=== PATIENT | male | born 1950 | race Caucasian/White ===

== ENCOUNTER → 2022-07-21 07:07 | Outpatient (CLI) | payer MEDICARE, SELFPAY ==
[2022-07-21 08:50] LABS: Hematocrit 47.6 % (41-53); Hemoglobin 16.1 g/dL (13.5-17.5); Mean Corpuscular HGB Conc 33.8 % (30-36); Mean Corpuscular Hemoglobin 28.9 PG (26-34); Mean Corpuscular Volume 85.6 fL (80-100); Platelet Count 145 X10^3/uL (150-400); Red Blood Cell Count 5.57 X10^6/uL (4.5-5.9); Red Cell Distribution Width 14.8 % (11.6-14.8); White Blood Cell Count 4.5 X10^3/uL (4.5-11.0)
[2022-07-21 09:27] LABS: Alanine Aminotransferase 40 IU/L (<50); Albumin 3.9 g/dL (3.5-5.0); Albumin Globulin Ratio 1.3 (1.0-2.8); Alkaline Phosphatase 65 U/L (38-126); Aspartate Aminotransferase 31 IU/L (17-59); BUN Creatinine Ratio 15.9 (6-22); Bilirubin Total 0.5 mg/dL (0.2-1.3); Blood Urea Nitrogen 14 mg/dL (9-20); Calcium 8.8 mg/dL (8.4-10.2); Carbon Dioxide 27 mmol/L (22-32); Chloride 102 mmol/L (98-107); Cholesterol 178 mg/dL (140-199); Estimated Glomerular Filt Rate > 60 mL/min (>60); Glucose 106 mg/dL (80-110); HDL Cholesterol 54 mg/dL (40-60); HEMOLYSIS < 15 (0-50); LDL Cholesterol Calculated 113 mg/dL (<100); Potassium 4.4 mmol/L (3.4-5.1); Sodium 140 mmol/L (137-145); Total Protein 6.9 g/dL (6.3-8.2); Triglycerides 57 mg/dL (35-150)
[2022-07-21 09:53] LABS: Prostate Specific Antigen 1.14 ng/mL (0.10-4.00)
[2022-07-21 11:44] LABS: TSH w/ Reflex to FT4 1.97 uIU/mL (0.47-4.68)
== END ==
PROVIDERS: PCP Internal Medicine; Referring Provider Internal Medicine; Visit Provider Internal Medicine
DX: I10 Essential (primary) hypertension (principal); N40.0 Benign prostatic hyperplasia without lower urinary tract symptoms; E78.2 Mixed hyperlipidemia
CPT/HCPCS: 36415; 80053; 80061; 84153; 84443; 85027

== ENCOUNTER 2024-08-07 06:55 | Emergency (ER) | payer MEDICARE, SELFPAY ==
[2024-08-07 07:04] VITALS: BP 175/93; PULSE 83; RESP 18; TEMP 36.3; O2SAT 98; BMI 38.7
--- NOTE | 2024-08-07 07:20 | ED.URI ---
HPI - URI/Sore Throat General Chief Complaint: Upper Respiratory Symptoms Stated Complaint: Sinus Infection Time Seen by Provider: 08/07/24 07:11 Source: patient Mode of arrival: Ambulatory History of Present Illness HPI Narrative: patient is a 73-year-old male history of hypertension hyperlipidemia presenting today with ongoing sinus issues. He reports he has had symptoms since April. He is bagging given 2 rounds of steroids and amoxicillin he has different nasal sprays. He says the nasal sprays to help but he has not really gotten much relief. Now over last couple of days his eyes are very painful. His right eye is more sensitive than his left. He reports that he has not really able to clear his right Christensen. He has continuous tearing from his right eye feels like something is in there. No fever chills headache neck pain. No numbness tingling nausea or vomiting. Related Data Previous Rx's Medication Instructions Recorded rosuvastatin 10 mg tablet 10 mg PO DAILY #90 tabs 09/01/23 amlodipine 5 mg tablet 5 mg PO DAILY #90 tabs 09/29/23 valsartan 160 mg tablet 160 mg PO DAILY #90 tabs 09/29/23 doxycycline monohydrate 100 mg 100 mg PO DAILY #90 caps 11/09/23 capsule hydrochlorothiazide 12.5 mg tablet 12.5 mg PO QAM #90 tabs 03/01/24 ResMed AirMini CPAP machine #1 ea 05/24/24 CPAP machine #1 ea 08/01/24 erythromycin 5 mg/gram (0.5 %) eye 0.5 inch EYE-BOTH .At night #3.5 08/07/24 ointment grams levofloxacin 750 mg tablet 750 mg PO DAILY 7 days #7 tabs 08/07/24 polymyxin B sulfate 10,000 1 drp EYE-BOTH Q4HRWA 7 days #10 mL 08/07/24 unit-trimethoprim 1 mg/mL eye drops Allergies Allergy/AdvReac Type Severity Reaction Status Date / Time losartan AdvReac Severe Cough Verified 09/29/23 12:47 lisinopril AdvReac Intermediate Cough Verified 09/29/23 12:47 Patient History Medical History (Updated 08/07/24 @ 09:20 by Gely Mckay DO) AAA (abdominal aortic aneurysm) without rupture Essential hypertension Overweight Allergic rhinitis Primary osteoarthritis involving multiple joints Chronic low back pain Obstructive sleep apnea Mixed hyperlipidemia Vision disorder Hearing loss Acne (~2009) Fractures Ankle pain (~1999) Measles Chicken pox AAA (abdominal aortic aneurysm) (~2013) Family History Father Hypertension Hyperlipidemia Mother History of heart disease Hypertension Stroke Sister Diabetes mellitus Hypertension Grandfather History of heart disease Hypertension Stroke Grandmother Mental health problem Grandfather History of heart disease Grandmother Mental health problem Family/Other Diabetes mellitus Social History details: , 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; retired police Smoking Status: Never smoker Smoking Status: Never smoker alcohol intake frequency: 0-2 drinks per day Substance Use Type: does not use Exam Initial Vital Signs Initial Vital Signs: Vital Signs Temperature 97.3 F L 08/07/24 07:04 Pulse Rate 83 08/07/24 07:04 Respiratory Rate 18 08/07/24 07:04 Blood Pressure 175/93 H 08/07/24 07:04 Pulse Oximetry 98 08/07/24 07:04 Oxygen Delivery Method Room Air 08/07/24 07:04 GENERAL: alert 73-year-old male HEENT: Head atraumatic,EOMI, pupils reactive, Tenderness over right sinus Right eye was treated with proparacaine, stained with fluorescein. Fluorescein uptake at 12:00 p.m. in a linear pattern eyes injected pressure 19 mmHg Left eye was treated with proparacaine, stained with fluorescein. Dye uptake circular 12:00 p.m. pattern and pressure 17 mmHg NECK: supple no meningeal signs CARDIOVASCULAR: Regular rate and rhythm without murmurs, rubs or gallops. RESPIRATORY: Breath sounds equal bilaterally, no wheezes rales or rhonchi. ABDOMEN: Soft, nontender. Normoactive bowel sounds all 4 quadrants. No guarding or rebound. EXTREMITIES: Normal range of motion, no clubbing or edema. Neurovascularly intact NEUROLOGICAL: Alert and oriented x4.Normal gait and speech. SKIN: Warm, dry, no laceration, no petechiae, no rashes or lesions. Course Orders Ordered: Discontinued Medications Fluorescein Sodium (Fluorescein 1 Mg Strip) 1 mg EYE-BOTH NOW ONE Stop: 08/07/24 08:17 Last Admin: 08/07/24 08:42 Dose: 1 mg Documented By: ABHISHEK Proparacaine HCl (Proparacaine 0.5% Ophth June) 1 drops EYE-BOTH NOW ONE Stop: 08/07/24 08:17 Last Admin: 08/07/24 08:42 Dose: 1 drop Documented By: ABHISHEK Vital Signs Vital signs: Vital Signs - 8 hr 08/07/24 07:04 Temperature 97.3 F L Pulse Rate 83 Respiratory Rate 18 Blood Pressure 175/93 H Pulse Oximetry 98 Oxygen Delivery Method Room Air MDM - URI/Sore Throat Lab Data Labs: Lab Results 08/07/24 Range/Units 08:44 SARS-CoV-2 (PCR) Negative (Negative) Influenza A (RT-PCR) Flu a negative (NEGATIVE) Influenza B (RT-PCR) Flu b negative (NEGATIVE) RSV (PCR) Negative (Negative) Imaging Data CT scan - head: Radiologist's Impression: PROCEDURE: CT SINUS SCREEN WO CON INDICATIONS: sinus symptoms for 4 months TECHNIQUE: Noncontrast 3.0 mm axial images acquired from the frontal sinuses to the mid-sella, with coronal and sagittal reformats. For radiation dose reduction, the following was used: automated exposure control, adjustment of mA and/or kV according to patient size. COMPARISON: None. FINDINGS: Image quality: Excellent. Maxillary Sinuses: No bony remodeling or destruction. Bilateral mild mucosal thickening, right greater than left. No air-fluid levels. Ethmoid Air Cells: No bony remodeling or destruction. Mild patchy mucosal thickening. No air-fluid levels. Sphenoid Sinuses: No bony remodeling or destruction. Prominent mucosal thickening of the left sphenoid sinus. Frontal Sinuses: No bony remodeling or destruction. Minimal mucosal thickening inferiorly on the left. Ostiomeatal Complexes: Both ostiomeatal complexes are somewhat narrowed by mucosal thickening. The right ostiomeatal complex is obstructed by minimal soft tissue. No Mukund cells. Miscellaneous: Visualized intra-orbital contents are normal. No axel bullosa or paradoxical turbinate curvature. No nasal septal deviation. IMPRESSION: Diffuse changes of chronic sinus disease. No air-fluid levels. Dictated by: Juan Oliver M.D. on 08/07/2024 at 8:44 [facility] Narrative Medical decision making narrative: Patient is 73-year-old male presenting today with ongoing sinus pressure and pain now both eyes are painful and watery and quite sensitive to light. On exam he is found to have actual bilateral corneal abrasions the right appears worse than the left. He has had persistent sinus symptoms for a couple of months despite antibiotics and steroids. He has not tried allergy medication. CT scan is negative for any kind of masses. Will try fluoroquinolone for about 7 days unclear if he was actually on amoxicillin or Augmentin but I think reasonable to try a different antibiotic. We will also give him some antibiotic drops and ointment for his corneal abrasions. Pressure is within normal limits. He has not where contacts. Respiratory panel negative patient is made aware Discharge Plan Departure Patient Disposition: Home Clinical Impression: Chronic infection of sinus, Bilateral corneal abrasions Instructions: DI for Corneal Abrasion, Sinusitis Activity Restrictions/Additional Instructions: *You have been diagnosed with chronic sinus infection bilateral corneal abrasion *What to do: At this time you have areas in both eyes which are likely causing your irritation. Antibiotic drops and ointment should help in about 7 days Your respiratory panel is still pending. It does not change treatment at this time. If it is positive I will call you by the end of the day if it is negative I will not call you you can also look in your portal *Continue to take medications as directed Levaquin 750 mg once a day for 7 days (for sinusitis) Erythromycin ointment in both eyes at night or as needed for soothing Polytrim drops 2 drops every 4 hours while awake for 7 days Try Lisa Claritin or [id number] allergy medicine as well *Follow up with your primary care provider in 2-3 days or call [phone] *Return to ER if you should have increasing eye pain headache fever neck pain or any new, worsening or concerning symptoms Prescriptions: New levofloxacin 750 mg tablet 750 mg PO DAILY 7 Days Qty: 7 0RF erythromycin 5 mg/gram (0.5 %) ointment 0.5 inch EYE-BOTH .At night Qty: 3.5 0RF polymyxin B sulf-trimethoprim 10,000 unit- 1 mg/mL drops 1 drp EYE-BOTH Q4HRWA 7 Days Qty: 10 0RF No Action rosuvastatin 10 mg tablet 10 mg PO DAILY Qty: 90 3RF doxycycline monohydrate 100 mg capsule 100 mg PO DAILY Qty: 90 3RF hydrochlorothiazide 12.5 mg tablet 12.5 mg PO QAM Qty: 90 3RF (DME) ResMed AirMini CPAP machine See Rx Instructions .Route .MEDSUPPLY Qty: 1 0RF Rx Instructions: ResMed AirMini Travel CPAP Machine - as directed (DME) CPAP machine See Rx Instructions .Route .MEDSUPPLY Qty: 1 0RF Rx Instructions: APAP therapy, Min 4 cmH20, Max 10 cmH20 valsartan 160 mg tablet 160 mg PO DAILY Qty: 90 3RF amlodipine 5 mg tablet 5 mg PO DAILY Qty: 90 3RF Referrals: Austin Schwab MD [Primary Care Provider] - Stand Alone Forms: Patient Portal/API/Survey
--- NOTE | 2024-08-07 08:16 | DI.CT.S_ITS ---
PROCEDURE: CT SINUS SCREEN WO CON INDICATIONS: sinus symptoms for 4 months TECHNIQUE: Noncontrast 3.0 mm axial images acquired from the frontal sinuses to the mid-sella, with coronal and sagittal reformats. For radiation dose reduction, the following was used: automated exposure control, adjustment of mA and/or kV according to patient size. COMPARISON: None. FINDINGS: Image quality: Excellent. Maxillary Sinuses: No bony remodeling or destruction. Bilateral mild mucosal thickening, right greater than left. No air-fluid levels. Ethmoid Air Cells: No bony remodeling or destruction. Mild patchy mucosal thickening. No air-fluid levels. Sphenoid Sinuses: No bony remodeling or destruction. Prominent mucosal thickening of the left sphenoid sinus. Frontal Sinuses: No bony remodeling or destruction. Minimal mucosal thickening inferiorly on the left. Ostiomeatal Complexes: Both ostiomeatal complexes are somewhat narrowed by mucosal thickening. The right ostiomeatal complex is obstructed by minimal soft tissue. No Mukund cells. Miscellaneous: Visualized intra-orbital contents are normal. No axel bullosa or paradoxical turbinate curvature. No nasal septal deviation. IMPRESSION: Diffuse changes of chronic sinus disease. No air-fluid levels. Dictated by: Juan Oliver M.D. on 08/07/2024 at 8:44 Approved by: Juan Oliver M.D. on 08/07/2024 at 8:47
[2024-08-07] MEDS: FLUORESCEIN 1 MG STRIP EYE-BOTH (08:42)
[2024-08-07] MEDS: PROPARACAINE 0.5% OPHTH SOL 1 DROPS EYE-BOTH (08:42)
[2024-08-07 09:25] LABS: COVID-19 CEPHEID 4-PLEX PCR Negative (Negative); Influenza A - CEPHEID Flu A NEGATIVE (NEGATIVE); Influenza B - CEPHEID Flu B NEGATIVE (NEGATIVE); Respiratory Syncytial Virus Negative (Negative)
[2024-08-07 09:38] VITALS: BP 143/83; PULSE 61; RESP 18; O2SAT 98
== END 2024-08-07 09:39 | disposition home or self-care (01) ==
PROVIDERS: Emergency Provider Emergency Medicine; PCP Internal Medicine
DX: J32.9 Chronic sinusitis, unspecified (principal); S05.02XA Injury of conjunctiva and corneal abrasion without foreign body, left eye, initial encounter; S05.01XA Injury of conjunctiva and corneal abrasion without foreign body, right eye, initial encounter
CPT/HCPCS: 0241U; 70486; 99282; 99284

== ENCOUNTER 2025-02-26 09:35 | Emergency (ER) | payer MEDICARE, SELFPAY ==
[2025-02-26] VITALS (86 sets, daily range): BP systolic 69–156; BP diastolic 42–92; PULSE 107–142; RESP 19–46; TEMP 36.9–38.6; O2SAT 74–100; BMI 26.9
--- NOTE | 2025-02-26 09:46 | EKG_ITS ---
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
--- NOTE | 2025-02-26 09:46 | DI.RAD.S_ITS ---
PROCEDURE: XR CHEST 1V INDICATIONS: suspected sepsis TECHNIQUE: One view of the chest was acquired. COMPARISON: None. FINDINGS: Surgical changes and devices: None. Lungs and pleura: Minimal increased vascularity. Slight streaky retrocardiac opacity. Mediastinum: Mediastinal contours appear normal. Heart size is normal. Bones and chest wall: No suspicious bony lesions. Overlying soft tissues appear unremarkable. IMPRESSION: Streaky retrocardiac opacity possibly related to atelectasis versus developing pneumonia. Dictated by: Griselda Patrick M.D. on 02/26/2025 at 10:16 Approved by: Griselda Patrick M.D. on 02/26/2025 at 12:07
--- NOTE | 2025-02-26 09:53 | DI.CT.S_ITS ---
PROCEDURE: CT ANGIO CHEST PE PROTOCOL INDICATIONS: hypoxic tachycardic TECHNIQUE: After the administration of intravenous contrast, 2 mm thick sections acquired from the pulmonary apices to the posterior costophrenic angles. 3-dimensional maximum intensity projection (MIP) coronal and sagittal reformats were then acquired through the thorax. For radiation dose reduction, the following was used: automated exposure control, adjustment of mA and/or kV according to patient size. COMPARISON: [facility], CT, CT CHEST WITHOUT CONTRAST, 01/18/2025, 9:40. [facility], CT, CT ANGIO CHEST PE, 12/24/2024, 11:31. [facility], CT, CT BIOPSY LUNG/MEDIASTINUM, 12/28/2024, 11:14. FINDINGS: Image quality: Diagnostic. Pulmonary arteries: Pulmonary arteries are normal in size, and demonstrate no intraluminal filling defects to suggest central pulmonary embolism. Lower Neck: No enlarged lymph nodes. Thyroid: No thyroid nodules which require sonographic follow up, per consensus guidelines. Axillae: No enlarged lymph nodes. Chest Wall: Unremarkable. Bones: Unremarkable. Lungs and Pleura: No pneumothorax or pleural effusions. Consolidative opacities within the right infrahilar region as well as left lower lobe. Multiple additional nodular opacities throughout the bilateral lung vasquez. For example in the left upper lobe measuring 2.3 cm. Compared to prior CT chest, most these opacities appear similar, the left lower lobe lesion demonstrates more consolidation. Heart: Heart size is normal. No pericardial effusion. Thoracic Vessels: No aortic aneurysm. Mediastinum and Tamia: No enlarged lymph nodes. Esophagus: No wall thickening. No hiatal hernia. Upper Abdomen: Separately dictated. IMPRESSION: No pulmonary embolus. Multifocal pulmonary consolidative opacities, greatest within the right infrahilar region and left lower lobe. Scattered additional nodular opacities throughout the bilateral lung vasquez. Differential includes infection or malignancy, correlate with recent lung biopsy results. Recommend follow-up CT chest in 3 months to assess stability or improvement. Dictated by: Kevin Hernandez M.D. on 02/26/2025 at 12:52 Approved by: Kevin Hernandez M.D. on 02/26/2025 at 13:01
--- NOTE | 2025-02-26 09:54 | ED.WEAKNESS ---
HPI - Weakness General Chief complaint: Weakness Stated complaint: Weakness, lethargic, rolled off couch Time Seen by Provider: 02/26/25 09:36 History of Present Illness HPI Narrative: 74-year-old male history of AAA, hypertension, hyperlipidemia, RAMOS, chronic low back pain, obesity, granulomatosis with polyangiitis here via EMS for evaluation of weakness. Patient is a poor historian. He does say and review of systems that he has had a cough and then he has been ?sick since November. ? Denies any chest pain or difficulty breathing. Denies abdominal pain. Endorses fatigue and weakness. Arrived via EMS for complaints of weakness, altered mental status, hypoxia and shortness of breath for several days. EMS initially called out by for patient rolling off the couch onto the floor. Noted by EMS to be febrile tachycardic and hypotensive. Placed on nasal cannula Related Data Home Medications ?Medication ?Instructions ?Recorded ?Confirmed atovaquone 750 mg/5 mL oral 1,500 mg PO QAM 02/20/25 02/20/25 suspension azathioprine 50 mg tablet 100 mg PO DAILY 02/20/25 02/20/25 folic acid 1 mg tablet 1 mg PO DAILY 02/20/25 02/20/25 guaifenesin 600 mg tablet, 600 mg PO BID 02/20/25 02/20/25 extended release 12 hr (Mucus Relief ER) methotrexate sodium 2.5 mg tablet 15 mg PO 02/20/25 02/20/25 prednisone 20 mg tablet 50 mg PO 02/20/25 02/20/25 Previous Rx's ?Medication ?Instructions ?Recorded ResMed AirMini CPAP machine #1 ea 05/24/24 CPAP machine #1 ea 08/01/24 rosuvastatin 10 mg tablet 10 mg PO DAILY #90 tabs 10/06/24 valsartan 160 mg tablet 160 mg PO DAILY #90 tabs 10/06/24 Allergies Allergy/AdvReac Type Severity Reaction Status Date / Time losartan AdvReac Severe Cough Verified 02/20/25 08:22 lisinopril AdvReac Intermediate Cough Verified 02/20/25 08:22 sulfamethoxazole (From AdvReac Mild Rash Verified 02/20/25 08:23 Bactrim) trimethoprim (From Bactrim) AdvReac Mild Rash Verified 02/20/25 08:23 Review of Systems Review of Systems Narrative: Limited due to acuity of situation Patient History Medical History AAA (abdominal aortic aneurysm) without rupture Essential hypertension Overweight Allergic rhinitis Primary osteoarthritis involving multiple joints Chronic low back pain Obstructive sleep apnea Mixed hyperlipidemia Vision disorder Hearing loss Acne (~2009) Fractures Ankle pain (~1999) Measles Chicken pox AAA (abdominal aortic aneurysm) (~2013) Family History Father Hypertension Hyperlipidemia Mother History of heart disease Hypertension Stroke Sister Diabetes mellitus Hypertension Grandfather History of heart disease Hypertension Stroke Grandmother Mental health problem Grandfather History of heart disease Grandmother Mental health problem Family/Other Diabetes mellitus Social History details: , 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 Patient has some distal cyanosis Pulmonary: Coarse breath sounds bilaterally, increased work of breathing with tachypnea Abdominal: soft, non-tender Extremities: No LE edema. No clinical signs of DVT Skin: warm and dry, no diaphoresis Neurological: Alert, follows commands, answer some questions with 1-2 word answers, normal tone, no nuchal rigidity Initial Vital Signs Initial Vital Signs: Vital Signs Blood Pressure 95/58 L 02/26/25 09:39 Course Orders Ordered: Discontinued Medications Acetaminophen (Acetaminophen 325 Mg Tablet) 975 mg PO NOW ONE Stop: 02/26/25 16:19 Last Admin: 02/26/25 16:40 Dose: 975 mg Documented By: LORIN Fentanyl (Fentanyl 100 Mcg/2 Ml Inj) 50 mcg IV Q1H PRN PRN Reason: Pain, Severe (7-10) Last Admin: 02/26/25 13:32 Dose: 50 mcg Documented By: Admin: 02/26/25 11:31 Dose: 50 mcg Documented By: LORIN Hydrocortisone (Hydrocortisone 100 Mg/2 Ml Vial) 100 mg IV NOW ONE Stop: 02/26/25 13:04 Last Admin: 02/26/25 13:32 Dose: 100 mg Documented By: LORIN Sodium Chloride (Normal Saline 0.9%) 1,000 mls @ 1,000 mls/hr IV BOLUS ONE Stop: 02/26/25 10:45 Last Infusion: 02/26/25 16:59 Dose: Infused Documented By: Infusion: 02/26/25 11:00 Dose: 0 mls/hr Documented By: Admin: 02/26/25 10:24 Dose: 1,000 mls/hr Documented By: LORIN Ceftriaxone Sodium 2,000 mg/ (Sodium Chloride) 100 mls @ 200 mls/hr IV NOW ONE Stop: 02/26/25 09:54 Last Infusion: 02/26/25 11:01 Dose: Infused Documented By: Admin: 02/26/25 10:31 Dose: 200 mls/hr Documented By: LORIN Azithromycin 500 mg/ Dextrose 250 mls @ 250 mls/hr IV NOW ONE Stop: 02/26/25 09:54 Last Infusion: 02/26/25 11:55 Dose: Infused Documented By: Admin: 02/26/25 10:55 Dose: 250 mls/hr Documented By: LORIN Sodium Chloride (Normal Saline 0.9%) 1,000 mls @ 1,000 mls/hr IV BOLUS ONE Stop: 02/26/25 10:52 Last Infusion: 02/26/25 11:45 Dose: Infused Documented By: Admin: 02/26/25 11:00 Dose: 1,000 mls/hr Documented By: ELENA Acetaminophen (Ofirmev) 1,000 mg in 100 mls @ 400 mls/hr IV NOW ONE Stop: 02/26/25 10:11 Last Infusion: 02/26/25 10:40 Dose: Infused Documented By: Admin: 02/26/25 10:13 Dose: 400 mls/hr Documented By: LORIN Vancomycin HCl 1,000 mg/ (Sodium Chloride) 250 mls @ 250 mls/hr IV NOW ONE Stop: 02/26/25 11:59 Last Infusion: 02/26/25 13:45 Dose: Infused Documented By: Admin: 02/26/25 12:46 Dose: 250 mls/hr Documented By: ELENA NOREPINEPHRINE BITARTRATE/D5W (Levophed) 4 mg in 250 mls @ 32.829 mls/hr IV TITRATE CHILO; Protocol Last Admin: 02/26/25 19:30 Dose: 0.3 mcg/kg/min, 98.486 mls/hr Documented By: Titration: 02/26/25 19:30 Dose: Infused Documented By: Admin: 02/26/25 17:53 Dose: 0.3 mcg/kg/min, 98.486 mls/hr Documented By: Titration: 02/26/25 17:53 Dose: Infused Documented By: Admin: 02/26/25 15:30 Dose: 0.3 mcg/kg/min, 98.486 mls/hr Documented By: Titration: 02/26/25 15:16 Dose: Infused Documented By: Titration: 02/26/25 15:00 Dose: 0.3 mcg/kg/min, 98.486 mls/hr Documented By: Titration: 02/26/25 14:32 Dose: 0.2 mcg/kg/min, 65.657 mls/hr Documented By: Titration: 02/26/25 14:03 Dose: 0.3 mcg/kg/min, 98.486 mls/hr Documented By: Titration: 02/26/25 13:47 Dose: 0.4 mcg/kg/min, 131.315 mls/hr Documented By: Titration: 02/26/25 12:44 Dose: 0.3 mcg/kg/min, 98.486 mls/hr Documented By: Titration: 02/26/25 12:22 Dose: 0.2 mcg/kg/min, 65.657 mls/hr Documented By: Admin: 02/26/25 11:57 Dose: 0.1 mcg/kg/min, 32.829 mls/hr Documented By: ES Lidocaine (Lidocaine 5% Patch) 1 each TOP NOW ONE Stop: 02/26/25 11:30 Last Admin: 02/26/25 11:55 Dose: 1 each Documented By: ES Morphine Sulfate (Morphine 4 Mg/Ml Inj) 4 mg IV NOW ONE Stop: 02/26/25 16:19 Last Admin: 02/26/25 16:40 Dose: 4 mg Documented By: ES Ondansetron HCl (Ondansetron 4 Mg/2 Ml Inj) 4 mg IV NOW PRN PRN Reason: Nausea And Vomiting Ondansetron HCl (Ondansetron 4 Mg Odt) 4 mg PO NOW PRN PRN Reason: Nausea And Vomiting Vancomycin HCl (Vancomycin Per Pharmacy) 1 request MISC NOW ONE Stop: 02/26/25 10:44 Last Admin: 02/26/25 12:54 Dose: 1 request Documented By: ELENA Vital Signs Vital signs: Vital Signs - 8 hr 02/26/25 09:39 02/26/25 09:40 02/26/25 09:46 Temperature 101.5 F H Pulse Rate 142 H Respiratory Rate 39 H Blood Pressure 95/58 L Pulse Oximetry 74 L 93 Oxygen Delivery Method Nasal Cannula Oxygen Flow Rate 6 02/26/25 09:50 02/26/25 09:50 02/26/25 09:54 Temperature Pulse Rate 137 H 134 H Respiratory Rate 46 H 46 H Blood Pressure 87/51 L Pulse Oximetry 80 L 82 L Oxygen Delivery Method Oxygen Flow Rate 6 02/26/25 09:54 02/26/25 10:00 02/26/25 10:10 Temperature Pulse Rate 133 H Respiratory Rate 43 H Blood Pressure 98/56 L 127/83 Pulse Oximetry 91 Oxygen Delivery Method Non -Rebreather Oxygen Flow Rate 02/26/25 10:10 02/26/25 10:23 02/26/25 10:30 Temperature Pulse Rate 134 H 123 H Respiratory Rate 45 H 34 H Blood Pressure 92/60 Pulse Oximetry 92 93 Oxygen Delivery Method Oxygen Flow Rate 02/26/25 10:38 02/26/25 10:38 02/26/25 10:39 Temperature 101.5 F H Pulse Rate 122 H Respiratory Rate 34 H Blood Pressure 135/92 H Pulse Oximetry 100 Oxygen Delivery Method Oxygen Flow Rate 02/26/25 10:58 02/26/25 10:58 02/26/25 11:00 Temperature Pulse Rate 123 H 125 H Respiratory Rate 38 H 41 H Blood Pressure 91/50 L Pulse Oximetry 100 100 Oxygen Delivery Method Oxygen Flow Rate 02/26/25 11:16 02/26/25 11:16 02/26/25 11:30 Temperature Pulse Rate 127 H 126 H Respiratory Rate 41 H 40 H Blood Pressure 103/56 L Pulse Oximetry 100 96 Oxygen Delivery Method Oxygen Flow Rate 02/26/25 11:34 02/26/25 11:34 02/26/25 11:52 Temperature Pulse Rate 126 H 115 H Respiratory Rate 40 H 27 H Blood Pressure 133/84 Pulse Oximetry 94 97 Oxygen Delivery Method Oxygen Flow Rate 02/26/25 11:52 02/26/25 11:56 02/26/25 11:56 Temperature Pulse Rate 115 H Respiratory Rate 27 H Blood Pressure 80/51 L 83/45 L Pulse Oximetry 94 Oxygen Delivery Method Oxygen Flow Rate 02/26/25 11:59 02/26/25 11:59 02/26/25 12:00 Temperature Pulse Rate 115 H 114 H Respiratory Rate 27 H 27 H Blood Pressure 84/47 L Pulse Oximetry 95 96 Oxygen Delivery Method Oxygen Flow Rate 02/26/25 12:01 02/26/25 12:01 02/26/25 12:07 Temperature Pulse Rate 114 H 113 H Respiratory Rate 28 H 29 H Blood Pressure 81/51 L Pulse Oximetry 96 94 Oxygen Delivery Method Oxygen Flow Rate 02/26/25 12:07 02/26/25 12:09 02/26/25 12:09 Temperature Pulse Rate 112 H Respiratory Rate 29 H Blood Pressure 85/57 L 97/53 L Pulse Oximetry 98 Oxygen Delivery Method Oxygen Flow Rate 02/26/25 12:16 02/26/25 12:16 02/26/25 12:21 Temperature Pulse Rate 116 H Respiratory Rate 33 H Blood Pressure 88/42 L 113/51 L Pulse Oximetry 98 Oxygen Delivery Method Oxygen Flow Rate 02/26/25 12:21 02/26/25 12:26 02/26/25 12:26 Temperature Pulse Rate 116 H 115 H Respiratory Rate 32 H 36 H Blood Pressure 81/51 L Pulse Oximetry 92 92 Oxygen Delivery Method Oxygen Flow Rate 02/26/25 12:30 02/26/25 12:31 02/26/25 12:31 Temperature Pulse Rate 116 H 115 H Respiratory Rate 29 H 33 H Blood Pressure 97/42 L Pulse Oximetry 95 94 Oxygen Delivery Method Oxygen Flow Rate 02/26/25 12:34 02/26/25 12:34 02/26/25 12:35 Temperature Pulse Rate 116 H 115 H Respiratory Rate 31 H 31 H Blood Pressure 104/58 L Pulse Oximetry 94 93 Oxygen Delivery Method Oxygen Flow Rate 02/26/25 12:35 02/26/25 12:39 02/26/25 12:39 Temperature Pulse Rate 112 H Respiratory Rate 27 H Blood Pressure 98/52 L 97/46 L Pulse Oximetry 93 Oxygen Delivery Method Oxygen Flow Rate 02/26/25 12:40 02/26/25 12:40 02/26/25 12:50 Temperature Pulse Rate 111 H 111 H Respiratory Rate 25 H 25 H Blood Pressure 105/51 L Pulse Oximetry 92 98 Oxygen Delivery Method Oxygen Flow Rate 02/26/25 12:50 02/26/25 12:55 02/26/25 12:55 Temperature Pulse Rate 113 H Respiratory Rate 30 H Blood Pressure 119/56 L 120/60 Pulse Oximetry 97 Oxygen Delivery Method Oxygen Flow Rate 02/26/25 13:00 02/26/25 13:00 02/26/25 13:05 Temperature Pulse Rate 114 H 112 H Respiratory Rate 27 H 24 Blood Pressure 110/61 Pulse Oximetry 98 97 Oxygen Delivery Method Oxygen Flow Rate 02/26/25 13:05 02/26/25 13:10 02/26/25 13:10 Temperature Pulse Rate 116 H Respiratory Rate 25 H Blood Pressure 113/67 115/63 Pulse Oximetry 98 Oxygen Delivery Method Oxygen Flow Rate 02/26/25 13:20 02/26/25 13:20 02/26/25 13:26 Temperature Pulse Rate 112 H Respiratory Rate 27 H Blood Pressure 130/51 L 116/60 Pulse Oximetry 95 Oxygen Delivery Method Oxygen Flow Rate 02/26/25 13:26 02/26/25 13:30 02/26/25 13:30 Temperature Pulse Rate 114 H 113 H Respiratory Rate 28 H Blood Pressure 105/62 Pulse Oximetry 97 97 Oxygen Delivery Method Oxygen Flow Rate 02/26/25 13:35 02/26/25 13:35 02/26/25 13:41 Temperature Pulse Rate 110 H 108 H Respiratory Rate 29 H Blood Pressure 107/66 Pulse Oximetry 96 97 Oxygen Delivery Method Oxygen Flow Rate 02/26/25 13:41 02/26/25 13:42 02/26/25 13:42 Temperature Pulse Rate 107 H Respiratory Rate 26 H Blood Pressure 69/47 L 78/44 L Pulse Oximetry 97 Oxygen Delivery Method Oxygen Flow Rate 02/26/25 13:44 02/26/25 13:44 02/26/25 13:46 Temperature Pulse Rate 108 H Respiratory Rate 27 H Blood Pressure 108/50 L 121/56 L Pulse Oximetry 97 Oxygen Delivery Method Oxygen Flow Rate 02/26/25 13:46 Temperature Pulse Rate 108 H Respiratory Rate 29 H Blood Pressure Pulse Oximetry 97 Oxygen Delivery Method Oxygen Flow Rate In brief, 74-year-old male presenting via EMS for weakness and lethargy, shortness of breath for several days, reports a cough and review of systems, denies any chest pain or shortness of breath. Arrived via EMS and requiring NRB for hypoxia In chart review: I see patient is prescribed methotrexate and folic acid. He has history of granulomatosis with polyangitis. On arrival to the emergency department, the patient is tachycardic in the 140s, hypoxic, appears to be in distributive shock with peripheral cyanosis. He has increased work of breathing. He is alert and communicative at this time, follows commands. Breath sounds are coarse Differential diagnoses considered but not limited to: Pneumonia, viral syndrome, heart failure, pericarditis or myocarditis, severe infection, pulmonary embolism, ruptured AAA I think less likely Initial treatment plan includes: Sent for CT angio chest abdomen and pelvis, send blood cultures, laboratories, start empiric treatment for community-acquired pneumonia, give IV fluid bolus EKG 0943: Sinus tachycardia rate of 142, [place] 144, QRS 68, QTC 424, left axis. There is no ST elevation or depression Laboratories pertinent for: neutropenia, thrombocytopenia, ABG reflects metabolic acidosis with respiratory compensation. Serum bicarb is 17 with improving lactic acid 8-->5. Will defer further crystalloid given BNP elevation. He is covered early empirically with Cefepime/Vancomycin/Azithromycin. Blood cultures are obtained prior to antibiotics. Imaging pertinent for: multifocal pneumonia without PE. CT abd/pelvis radiologist remarks dilated bowel may be related to ileus or partial SBO. No evidence of AAA rupture. Pt's abdominal exam remains benign. On reassessment at 10:43 a.m. the patient's blood pressure is improving with 2 L fluid bolus. We will continue to monitor, initiate Levophed if maps at or below 65. Patients is at the bedside, provides additional history. Reports the patient was hospitalized in December at [facility]. Had some imaging done at that time. 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 He is currently getting infusions of she thinks rituximab through physician Dr. Acosta and started methotrexate as well. She confirms patient is chronically on prednisone. I have asked ED telephone quotation clerk to request prior hospitalization records. I have ordered stress dose steroids for this patient with severe sepsis. Will ask hospitalist to admit to ICU. Hospiatlist evaluates pt at bedside, feels patient would benefit from transfer to [place] for higher level of care. Spoke at 1646 with Nursing Home Assistant Administrator Dr. López regarding pt presentation and workup -Agrees with workup and management of note -Agrees with transfer & will accept to ICU He is currently requiring levophed @ 26mcg/min. I have asked RT to place pt on HFNC prior to transfer based on most recent abg. Patient will be transferred by air transport. On reevaluation prior to transfer pt remains alert, color improving. His condition is guarded. no longer at bedside. He is aware of plan for transfer to [place]. MDM - Weakness Lab Data 02/26/25 09:35 02/26/25 09:35 Labs: Lab Results 02/26/25 02/26/25 02/26/25 Range/Units 09:35 10:00 10:09 WBC 0.6 L* (4.5-11.0) X10^3/uL RBC 5.14 (4.5-5.9) X10^6/uL Hgb 14.6 (13.5-17.5) g/dL Hct 43.4 (41-53) % MCV 84.3 (80-100) fL MCH 28.3 (26-34) PG MCHC 33.6 (30-36) % RDW 21.1 H (11.6-14.8) % Plt Count 122 L (150-400) X10^3/uL Neut % (Auto) Not Reportable Lymph % (Auto) Not Reportable [place] % (Auto) Not Reportable Eos % (Auto) Not Reportable Baso % (Auto) Not Reportable Lymph # (Auto) Not Reportable [place] # (Auto) Not Reportable Baso # (Auto) Not Reportable Total Counted 50 Lymphocytes % (Manual) 82.0 H (25-45) % Monocytes % (Manual) 18.0 H (2-11) % Neutrophils # (Manual) 0 L (6626-6009) /uL Platelet Estimate Decreased on smear Plt Morphology Comment Sb RBC Morphology See below Poikilocytosis 1+ H Anisocytosis 2+ H Macrocytosis 1+ H PT 15.7 H (9.4-12.5) SECONDS INR 1.4 H (0.9-1.3) APTT 33 (25.1-36.5) SECONDS ABG Sample Site Left brachial ABG pH 7.46 H (7.35-7.45) ABG pCO2 22.8 L* (35-45) mmHg ABG pO2 87 (80-100) mmHg ABG HCO3 16 L (23-27) mmol/L ABG Total CO2 15 L (23-27) mmol/L ABG O2 Saturation 97 (95-100) % ABG Base Excess -5.8 L (-2-3) mmol/L Tim Test N/a O2 Delivery Device Non rebreather FiO2 % 80.0 % % Sodium 131 L (137-145) mmol/L Potassium 3.5 (3.4-5.1) mmol/L Chloride 98 (98-107) mmol/L Carbon Dioxide 17 L (22-32) mmol/L BUN 33 H (9-20) mg/dL Creatinine 2.66 H (0.66-1.25) mg/dL Estimated GFR 25 L (>60) mL/min BUN/Creatinine Ratio 12.4 (6-22) Glucose 76 (70-99) mg/dL Lactate 8.4 H* (0.7-2.1) mmol/L Calcium 8.2 L (8.4-10.2) mg/dL Total Bilirubin 2.8 H (0.2-1.3) mg/dL AST 42 (17-59) IU/L ALT 39 (<50) IU/L Alkaline Phosphatase 40 (38-126) U/L NT-Pro-B Natriuret Pep 38557 H (<125) pg/mL Total Protein 5.7 L (6.3-8.2) g/dL Albumin 3.2 L (3.5-5.0) g/dL Globulin 2.5 (1.7-4.1) g/dL Albumin/Globulin Ratio 1.3 (1.0-2.8) Lipase 53 (23-300) U/L Procalcitonin 148 H (<0.5) ng/mL Chlamy pneumoniae PCR Not detected (Not Detect) Adenovirus (PCR) Not detected (Not Detect) B. pertussis DNA (PCR) Not detected (Not Detect) B.parapertussis DNA PCR Not detected (Not Detecte) Coronavirus OC43 (PCR) Not detected (Not Detect) Coronavirus HKU1 (PCR) Not detected (Not Detect) Coronavirus 229E (PCR) Not detected (Not Detect) SARS-CoV-2 (PCR) Not detected (Not Detecte) Coronavirus NL63 (PCR) Not detected (Not Detect) Human Metapneumovir PCR Not detected (Not Detect) Influenza Type A (PCR) Not detected (Not Detect) Influenza Type B (PCR) Not detected (Not Detect) M. pneumoniae (PCR) Not detected (Not Detect) Parainfluenza 1 (PCR) Not detected (Not Detect) Parainfluenza 2 (PCR) Not detected (Not Detect) Parainfluenza 3 (PCR) Not detected (Not Detect) Parainfluenza 4 (PCR) Not detected (Not Detect) RSV (PCR) Not detected (Not Detect) Entero/Rhino (PCR) Not detected (Not Detect) 02/26/25 02/26/25 Range/Units 11:50 19:50 WBC (4.5-11.0) X10^3/uL RBC (4.5-5.9) X10^6/uL Hgb (13.5-17.5) g/dL Hct (41-53) % MCV (80-100) fL MCH (26-34) PG MCHC (30-36) % RDW (11.6-14.8) % Plt Count (150-400) X10^3/uL Neut % (Auto) Lymph % (Auto) [place] % (Auto) Eos % (Auto) Baso % (Auto) Lymph # (Auto) [place] # (Auto) Baso # (Auto) Total Counted Lymphocytes % (Manual) (25-45) % Monocytes % (Manual) (2-11) % Neutrophils # (Manual) ([id number]) /uL Platelet Estimate Plt Morphology Comment RBC Morphology Poikilocytosis Anisocytosis Macrocytosis PT (9.4-12.5) SECONDS INR (0.9-1.3) APTT (25.1-36.5) SECONDS ABG Sample Site Right radial ABG pH 7.33 L (7.35-7.45) ABG pCO2 32.7 L (35-45) mmHg ABG pO2 74 L (80-100) mmHg ABG HCO3 17 L (23-27) mmol/L ABG Total CO2 16 L (23-27) mmol/L ABG O2 Saturation 94 L (95-100) % ABG Base Excess -7.8 L (-2-3) mmol/L Tim Test N/a O2 Delivery Device High flow uriel cannul FiO2 % 60.0 % % Sodium (137-145) mmol/L Potassium (3.4-5.1) mmol/L Chloride (98-107) mmol/L Carbon Dioxide (22-32) mmol/L BUN (9-20) mg/dL Creatinine (0.66-1.25) mg/dL Estimated GFR (>60) mL/min BUN/Creatinine Ratio (6-22) Glucose (70-99) mg/dL Lactate 5.5 H* (0.7-2.1) mmol/L Calcium (8.4-10.2) mg/dL Total Bilirubin (0.2-1.3) mg/dL AST (17-59) IU/L ALT (<50) IU/L Alkaline Phosphatase (38-126) U/L NT-Pro-B Natriuret Pep (<125) pg/mL Total Protein (6.3-8.2) g/dL Albumin (3.5-5.0) g/dL Globulin (1.7-4.1) g/dL Albumin/Globulin Ratio (1.0-2.8) Lipase (23-300) U/L Procalcitonin (<0.5) ng/mL Chlamy pneumoniae PCR (Not Detect) Adenovirus (PCR) (Not Detect) B. pertussis DNA (PCR) (Not Detect) B.parapertussis DNA PCR (Not Detecte) Coronavirus OC43 (PCR) (Not Detect) Coronavirus HKU1 (PCR) (Not Detect) Coronavirus 229E (PCR) (Not Detect) SARS-CoV-2 (PCR) (Not Detecte) Coronavirus NL63 (PCR) (Not Detect) Human Metapneumovir PCR (Not Detect) Influenza Type A (PCR) (Not Detect) Influenza Type B (PCR) (Not Detect) M. pneumoniae (PCR) (Not Detect) Parainfluenza 1 (PCR) (Not Detect) Parainfluenza 2 (PCR) (Not Detect) Parainfluenza 3 (PCR) (Not Detect) Parainfluenza 4 (PCR) (Not Detect) RSV (PCR) (Not Detect) Entero/Rhino (PCR) (Not Detect) Critical Care Time Critical Care Time Attestation: Upon my evaluation, this patient had a high probability of imminent or life-threatening deterioration due to septic shock, acute hypoxic respiratory failure, neutropenic fever, which required my direct attention, intervention, and personal management. I have personally provided 60 minutes of critical care time exclusive of time spent on separately billable procedures. Time includes review of laboratory data, radiology results, discussion with consultants, and monitoring for potential decompensation. Interventions were performed as documented above. Nathanael Patel MD Discharge Plan Departure Patient Disposition: [facility] Clinical Impression: Weakness, Acute hypotension, Sepsis, Fever and neutropenia, Acute hypoxemic respiratory failure Prescriptions: No Action (DME) ResMed AirMini CPAP machine See Rx Instructions .Route .MEDSUPPLY Qty: 1 0RF Rx Instructions: ResMed AirMini Travel CPAP Machine - as directed (DME) CPAP machine See Rx Instructions .Route .MEDSUPPLY Qty: 1 0RF Rx Instructions: APAP therapy, Min 4 cmH20, Max 10 cmH20 rosuvastatin 10 mg tablet 10 mg PO DAILY Qty: 90 0RF Rx Instructions: APPT DUE WITH PCP PRIOR TO END OF RX/FUTURE FILLS. PLEASE CALL TO SCHEDULE APPT. THANKS 10/06/24 valsartan 160 mg tablet 160 mg PO DAILY Qty: 90 0RF Rx Instructions: APPT DUE WITH PCP PRIOR TO END OF RX/FUTURE FILLS. PLEASE CALL TO SCHEDULE APPT. THANKS 10/06/24 prednisone 20 mg tablet 50 mg PO azathioprine 50 mg tablet 100 mg PO DAILY methotrexate sodium 2.5 mg tablet 15 mg PO folic acid 1 mg tablet 1 mg PO DAILY atovaquone 750 mg/5 mL suspension 1,500 mg PO QAM guaifenesin [Mucus Relief ER] 600 mg tablet extended release 12hr 600 mg PO BID Referrals: Dagoberto Quinn DO [Primary Care Provider, Family Practice]
--- NOTE | 2025-02-26 09:55 | DI.CT.S_ITS ---
PROCEDURE: CT ABDOMEN PELVIS W CON INDICATIONS: hx aaa with hypotension TECHNIQUE: After the administration of intravenous contrast, axial sections acquired from the lung bases to the pubic symphysis. Coronal and sagittal reformats were performed. For radiation dose reduction, the following was used: automated exposure control, adjustment of mA and/or kV according to patient size. COMPARISON: [facility], CT, CT ABDOMEN PELVIS WITH CONTRAST, 12/26/2024, 10:01. FINDINGS: Image quality: Diagnostic. Lower Chest: Separately dictated ABDOMEN: Liver: No solid mass. Gallbladder: No radiopaque gallstones or wall thickening. Biliary ducts: No biliary dilation. Pancreas: No ductal dilation. Spleen: Size is within normal limits. Adrenal Glands: No adrenal nodules. Kidneys and Ureters: No hydronephrosis. No solid mass. No complex renal cystic lesion which requires follow up. Bilateral perinephric stranding is increased compared to prior. Stomach and Bowel: Normal colonic caliber, without significant wall thickening. The proximal colon is fluid-filled. Several dilated loops of small bowel measuring up to 3.9 cm are present. No definite transition point is seen. Peritoneum: No abnormal intraperitoneal fluid. No free air. Ventral Wall: No significant ventral hernia. Abdominal Nodes: No retroperitoneal or mesenteric adenopathy by size criteria. Vessels: Aorta and inferior vena cava are normal in size. Atherosclerotic vascular calcifications. PELVIS: Pelvic Organs: Unremarkable. Bladder: No bladder wall thickening, accounting for underdistention. Pelvic Nodes: No enlarged lymph nodes. Miscellaneous: No inguinal hernias are seen. Bones: No aggressive osseous abnormality. Pubic bone and left sacral fixation hardware. Decreased osseous mineralization. Degenerative changes of the spine. IMPRESSION: 1. Several dilated loops of small bowel measuring up to 3.9 cm. No definite transition point is seen. Consider ileus versus developing or partial obstruction. 2. Bilateral perinephric stranding is increased compared to prior, correlate for infection. 3. Fluid filling the proximal colon, may represent colitis. Dictated by: Kevin Hernandez M.D. on 02/26/2025 at 13:01 Approved by: Kevin Hernandez M.D. on 02/26/2025 at 13:07
[2025-02-26 10:09] LABS: Hematocrit 43.4 % (41-53); Hemoglobin 14.6 g/dL (13.5-17.5); Mean Corpuscular HGB Conc 33.6 % (30-36); Mean Corpuscular Hemoglobin 28.3 PG (26-34); Mean Corpuscular Volume 84.3 fL (80-100); Platelet Count 122 X10^3/uL (150-400); Red Blood Cell Count 5.14 X10^6/uL (4.5-5.9); Red Cell Distribution Width 21.1 % (11.6-14.8)
[2025-02-26 10:11] LABS: Add Manual Diff / Slide Review YES
[2025-02-26 10:13] LABS: White Blood Cell Count 0.6 X10^3/uL (4.5-11.0)
[2025-02-26] MEDS: ACETAMINOPHEN IV 1,000 MG/100 ML VIAL 400 MG IV (10:13)
[2025-02-26 10:16] LABS: Base Excess ABG -5.8 mmol/L (-2-3); Blood Gas Collection Site Left Brachial; Delivery System NON REBREATHER; HCO3 ABG 16 mmol/L (23-27); Oxygen Saturation ABG 97 % (95-100); PCO2 ABG 22.8 mmHg (35-45); PO2 ABG 87 mmHg (80-100); TCO2 ABG 15 mmol/L (23-27); pH ABG 7.46 (7.35-7.45)
[2025-02-26 10:16] LABS: INR 1.4 (0.9-1.3); Prothrombin Time 15.7 SECONDS (9.4-12.5)
[2025-02-26 10:19] LABS: PTT Partial Thromboplastin Tim 33 SECONDS (25.1-36.5)
[2025-02-26] MEDS: SODIUM CHLORIDE 0.9% 1,000 ML 1000 ML IV ×2 (10:24→11:00)
[2025-02-26 10:27] LABS: Alanine Aminotransferase 39 IU/L (<50); Albumin 3.2 g/dL (3.5-5.0); Albumin Globulin Ratio 1.3 (1.0-2.8); Alkaline Phosphatase 40 U/L (38-126); BUN Creatinine Ratio 12.4 (6-22); Bilirubin Total 2.8 mg/dL (0.2-1.3); Blood Urea Nitrogen 33 mg/dL (9-20); Calcium 8.2 mg/dL (8.4-10.2); Carbon Dioxide 17 mmol/L (22-32); Chloride 98 mmol/L (98-107); Estimated Glomerular Filt Rate 25 mL/min (>60); Globulin 2.5 g/dL (1.7-4.1); Glucose 76 mg/dL (70-99); HEMOLYSIS < 15 (0-50); Lipase 53 U/L (23-300); Potassium 3.5 mmol/L (3.4-5.1); Sodium 131 mmol/L (137-145); Total Protein 5.7 g/dL (6.3-8.2)
[2025-02-26] MEDS: cefTRIAXone 2,000 MG in SODIUM CHLORIDE 0.9% 100 ML 200 MG IV (10:31)
[2025-02-26 10:35] LABS: Aspartate Aminotransferase 42 IU/L (17-59)
[2025-02-26 10:40] LABS: Lactate (Lactic Acid) 8.4 mmol/L (0.7-2.1)
[2025-02-26 10:47] LABS: NT-proBNP (BNP-Adult 18+) 20100 pg/mL (<125)
[2025-02-26] MEDS: AZITHROMYCIN 500 MG in DEXTROSE 5% IN WATER 250 ML 250 MG IV (10:55)
[2025-02-26 10:57] LABS: Neutrophils Absolute Manual 0 /uL (3000-5900); Total Cells Counted 50
[2025-02-26 10:58] LABS: Anisocytosis 2+; Macrocytosis 1+; Platelet Estimate Decreased on smear; Poikilocytosis 1+
[2025-02-26 11:19] LABS: Adenovirus Not Detected (Not Detect); B. parapertussis Not Detected (Not Detecte); Bordetella pertussis Not Detected (Not Detect); Chlamydophila pneumoniae Not Detected (Not Detect); Coronavirus 229E Not Detected (Not Detect); Coronavirus HKU1 Not Detected (Not Detect); Coronavirus NL 63 Not Detected (Not Detect); Coronavirus OC43 Not Detected (Not Detect); Human Metapneumovirus Not Detected (Not Detect); Human Rhinovirus/Enterovirus Not Detected (Not Detect); Influenza A Not Detected (Not Detect); Influenza B Not Detected (Not Detect); Mycoplasma pneumoniae Not Detected (Not Detect); Parainfluenza Virus 1 Not Detected (Not Detect); Parainfluenza Virus 2 Not Detected (Not Detect); Parainfluenza Virus 3 Not Detected (Not Detect); Parainfluenza Virus 4 Not Detected (Not Detect); Respiratory Syncytial Virus Not Detected (Not Detect); SARS- CoV-2 Not Detected (Not Detecte)
[2025-02-26 11:29] LABS: Reflexed Lactate in 2 Hours Y
[2025-02-26] MEDS: fentaNYL 100 MCG/2 ML INJ 50 MCG IV ×2 (11:31→13:32)
[2025-02-26 11:37] LABS: Procalcitonin 148 ng/mL (<0.5)
[2025-02-26] MEDS: LIDOCAINE 5% PATCH 1 EACH TOP (11:55)
[2025-02-26] MEDS: NOREPINEPHRINE BITARTRATE/D5W 4 MG/250 ML PLAST..BAG 32.829 MG IV (11:57)
[2025-02-26 12:22] LABS: Lactate 2HR (Lactic Acid Rflx) 5.5 mmol/L (0.7-2.1)
[2025-02-26] MEDS: VANCOMYCIN 1,000 MG in SODIUM CHLORIDE 0.9% 250 ML 250 MG IV (12:46)
[2025-02-26] MEDS: VANCOMYCIN PER PHARMACY 1 REQUEST MISC (12:54)
[2025-02-26] MEDS: HYDROCORTISONE 100 MG/2 ML VIAL IV (13:32)
[2025-02-26] MEDS: NOREPINEPHRINE BITARTRATE/D5W 4 MG/250 ML PLAST..BAG 98.486 MG IV ×3 (15:30→19:30)
--- NOTE | 2025-02-26 15:30 | PC.NURSE ---
Late entry note: 50mcg Fentanyl administered to pt by this RN on 02/26/2025 but not scanned/saved. Q1hr Fentanyl PRN ordered for severe pain, pt CO of 9/10 pain frequently throughout shift. Fentanyl pulled at 1527, 50mcg administered and then 50mcg wasted appropriately in Pyxis with witness. Pt was monitored closely by this RN and vitals charted throughout stay in ED.
--- NOTE | 2025-02-26 16:15 | CM.SWNOTE ---
ED TITLE INSURANCE AGENT Note: TITLE INSURANCE AGENT consulted to assist pt and pt to sign up for [employer] Membership due to pending [employer] transfer. TITLE INSURANCE AGENT assisted pt , Nata, with completing form. Printed copy of membership card to pt . GAMA Pereira
[2025-02-26] MEDS: MORPHINE 4 MG/ML INJ IV (16:40)
[2025-02-26] MEDS: ACETAMINOPHEN 325 MG TABLET 975 MG PO (16:40)
--- NOTE | 2025-02-26 18:39 | RT ---
PT STARTED ON [facility] PER VERBAL ORDER BY ED DR. MALDONADO UPDATED W/ SETTINGS.
--- NOTE | 2025-02-26 19:13 | PC.NURSE ---
PAPER SORTER [employer] COUNTER Note: Started transfer to [facility] at 1539. Images pushed, facesheet and reports faxed. Patient accepted by Dr. López at 1730. Bed assigned 1800, [address], 11-01. Nurse report Number [phone]. [facility] called for transport 1804. ETA to 191.
[2025-02-26 19:56] LABS: Base Excess ABG -7.8 mmol/L (-2-3); Blood Gas Collection Site Right Radial; Delivery System High Flow Nas Cannul; HCO3 ABG 17 mmol/L (23-27); Oxygen Saturation ABG 94 % (95-100); PCO2 ABG 32.7 mmHg (35-45); PO2 ABG 74 mmHg (80-100); TCO2 ABG 16 mmol/L (23-27); pH ABG 7.33 (7.35-7.45)
== END 2025-02-26 20:20 | disposition short-term general hospital (02) ==
PROVIDERS: Emergency Provider Student in an Organized Health Care Education/Training Program; PCP Family Medicine
DX: D70.9 Neutropenia, unspecified (principal); R50.81 Fever presenting with conditions classified elsewhere; I95.9 Hypotension, unspecified; A41.9 Sepsis, unspecified organism; J96.01 Acute respiratory failure with hypoxia; R53.1 Weakness; R00.0 Tachycardia, unspecified
CPT/HCPCS: 36415; 36600; 71045; 71275; 74177; 80053; 82805; 83605; 83690; 83880; 84145; 85007; 85025; 85610; 85730; 87040; 87633; 93005; 96365; 96366; 96367; 96368; 96375; 96376; 99284; 99291; J0131; J0696; J1720; J2270; J3010; Q9967